=== PATIENT | female | born 1995 | race Caucasian/White ===

== ENCOUNTER → 2018-09-11 | Outpatient (CLI) | payer OTHER ==
[2018-09-11 13:04] LABS: BASO % 0.2 % (0.0-1.0); EOS # 0.1 10^3/uL (0.0-0.50); EOS % 0.9 % (0.0-3.0); HEMOGLOBIN 12.8 g/dl (12.0-15.5); LYMPH # 2.3 10^3/uL (1.5-6.5); LYMPH % 22.2 % (24.0-44.0); MEAN CORPUSCULAR HGB CONC 34.6 g/dl (32.0-36.5); MEAN CORPUSCULAR VOLUME 98.1 fl (80.0-96.0); MONO # 0.7 10^3/uL (0.0-0.8); MONO % 6.5 % (0.0-5.0); NEUTROPHILS # 7.3 10^3/uL (1.8-7.7); NEUTROPHILS % 69.6 % (36.0-66.0); PLATELET COUNT, AUTOMATED 247 10^3/uL (150-450); RED BLOOD COUNT 3.77 10^6/uL (4.00-5.40); WHITE BLOOD COUNT 10.5 10^3/uL (4.0-10.0)
[2018-09-11 14:28] LABS: HEPATITIS C VIRUS ABY INDEX 0.1 INDEX (<0.8); HIV 1&2 SCREEN CENTAUR NEGATIVE (NEGATIVE); RUBELLA IgG QUALITATIVE IMMUNE (IMMUNE)
[2018-09-11 14:47] LABS: CHLAMYDIA DNA AMPLIFICATION NEGATIVE (NEGATIVE); GC DNA AMPLIFICATION NEGATIVE (NEGATIVE)
== END ==
LOC: M LAB 12:28
PROVIDERS: ATTEND Advanced Practice Midwife
DX: Z34.01 Encounter for supervision of normal first pregnancy, first trimester (principal); Z3A.10 10 weeks gestation of pregnancy; Z36.89 Encounter for other specified antenatal screening

== ENCOUNTER → 2018-09-11 | Outpatient (CLI) | payer OTHER ==
--- NOTE | 2018-09-11 20:40 | REP ---
Clinical: Anatomical evaluation. Comparison: None . Findings: Examination demonstrates a single live intrauterine in cephalic presentation. motion is identified by technologist. Placenta is noted anterior and grade zero without evidence for placenta previa or abruption. Amniotic fluid volume is normal. Cervix measures 3.4 cm in length and appears closed. No evidence for nuchal cord. Gestational age by LMP 18 weeks 1 day with ANASTACIO 02/11/2019 . Gestational age by current measurements 18 weeks 1 day with ANASTACIO 02/11/2019 . FHR equals 163 beats per minute. BPD 4.3 cm 19 weeks 0 days HC 15.3 cm 18 weeks 2 days AC 13.0 cm 18 weeks 4-day FL 2.6 cm 18 weeks 0 days HL 2.6 cm 18 weeks 0 days HC/AC ratio 1.18 Estimated weight 234 grams ( 55th percentile). Anatomical assessment demonstrates normal structures including cranium, choroid plexus, cavum, cerebellum/posterior fossa, lungs, four-chamber heart/ventricular outflow tracts, diaphragm, stomach, cord insertion/three-vessel cord, kidneys/bladder, spine, and extremities. Impression: Single live intrauterine in cephalic presentation demonstrating appropriate interval growth. Limited evaluation of the facial features. Remainder examination is normal. Electronically Signed by Vick Bolivar MD 09/11/2018 08:31 P
== END ==
LOC: M RAD 11:17
PROVIDERS: ATTEND Specialist
DX: Z36.89 Encounter for other specified antenatal screening (principal); Z3A.18 18 weeks gestation of pregnancy

== ENCOUNTER → 2018-10-02 | Outpatient (CLI) | payer OTHER ==
--- NOTE | 2018-10-02 12:36 | REP ---
Clinical: Anatomical evaluation. Comparison: 09/11/2018 . Findings: Examination demonstrates a single live intrauterine in cephalic presentation. motion is identified by technologist. Placenta is noted anterior and grade zero without evidence for placenta previa or abruption. Amniotic fluid volume is normal. Cervix measures 3.9 cm in length and appears closed. No evidence for nuchal cord. Gestational age by LMP 21 weeks 1 day with ANASTACIO 02/11/2019 . Gestational age by current measurements 21 weeks 1 day with ANASTACIO 02/11/2019 . FHR equals 163 beats per minute. Estimated weight 452 grams ( 71st percentile). Anatomical assessment demonstrates normal structures including cranium, choroid plexus, cavum, cerebellum/posterior fossa, facial features, lungs, four-chamber heart/ventricular outflow tracts, diaphragm, stomach, cord insertion/three-vessel cord, kidneys/bladder, spine, and extremities. Impression: Single live intrauterine in cephalic presentation demonstrating appropriate interval growth. Anatomical assessment is complete and normal. No gross abnormalities are identified. Electronically Signed by Vick Bolivar MD 10/02/2018 12:28 P
== END ==
LOC: M RAD 10:58
PROVIDERS: ATTEND Advanced Practice Midwife
DX: Z34.02 Encounter for supervision of normal first pregnancy, second trimester (principal); Z36.89 Encounter for other specified antenatal screening; Z3A.21 21 weeks gestation of pregnancy

== ENCOUNTER → 2018-11-20 | Outpatient (CLI) | payer OTHER ==
[2018-11-20 14:00] LABS: BASO % 0.3 % (0.0-1.0); EOS # 0.2 10^3/uL (0.0-0.5); EOS % 1.1 % (0.0-3.0); HEMATOCRIT 35.6 % (36.0-47.0); HEMOGLOBIN 12.2 g/dl (12.0-15.5); LYMPH # 2.7 10^3/uL (1.5-5.0); LYMPH % 17.5 % (24.0-44.0); MEAN CORPUSCULAR HEMOGLOBIN 35.2 pg (27.0-33.0); MEAN CORPUSCULAR HGB CONC 34.3 g/dl (32.0-36.5); MEAN CORPUSCULAR VOLUME 102.6 fl (80.0-96.0); MONO # 0.8 10^3/uL (0.0-0.8); MONO % 5.2 % (0.0-5.0); NEUTROPHILS # 11.4 10^3/uL (1.5-8.5); NEUTROPHILS % 74.7 % (36.0-66.0); PLATELET COUNT, AUTOMATED 267 10^3/uL (150-450); RED BLOOD COUNT 3.47 10^6/uL (4.00-5.40); WHITE BLOOD COUNT 15.2 10^3/uL (4.0-10.0)
== END ==
LOC: M LAB 11:22
PROVIDERS: ATTEND Specialist
DX: Z34.02 Encounter for supervision of normal first pregnancy, second trimester (principal)

== ENCOUNTER → 2019-01-15 | Outpatient (REF) | payer OTHER | LOC: M LAB REF 15:34 | PROVIDERS: ATTEND Obstetrics & Gynecology | DX: Z36.85 Encounter for antenatal screening for Streptococcus B (principal) ==

== ENCOUNTER 2019-02-02 15:56 | Inpatient (IN) | payer OTHER ==
[~2019-02-02] VITALS: Ht 154.9 cm; Wt 75.7 kg
[2019-02-02 16:19] VITALS: BP 127/78
[2019-02-02] MEDS ORDERED: PRENTAB9 PO (16:21)
[2019-02-02] MEDS ORDERED: TUMS750C5 PO (16:21)
[2019-02-02 17:16] VITALS: BP 128/80
--- NOTE | 2019-02-02 18:07 | HPE ---
DATE OF ADMISSION: 02/02/2019 REASON FOR ADMISSION: Spontaneous rupture of membranes. HISTORY OF PRESENT ILLNESS: Ms. Renee is a 23-year-old, 1 who presents at 38 weeks 5 days estimated gestational age by her last menstrual period confirmed by first trimester ultrasound with complaints of contractions and leakage of fluid she reports approximately at 3:30 this afternoon. She has reported contractions throughout the day but after the leakage of fluid they have increased in intensity and frequency. She denies any vaginal bleeding and reports active movement. Her course has been unremarkable. She initiated care in her first trimester and has been appropriate throughout. PAST MEDICAL HISTORY: History of anxiety, obsessive-compulsive disorder, and depression. PAST SURGICAL HISTORY: None. PAST OBSTETRICAL HISTORY: She is a 1. MEDICATIONS: Includes: - vitamins - she discontinued Prozac during her ALLERGIEs: She has no known drug allergies. SOCIAL HISTORY: She is a former smoker, quit during her . Denies any drug use or alcohol use during her . PHYSICAL EXAMINATION: Vital signs: Stable. She is afebrile. She has a category one heart rate tracing. heart rate 130 beats, moderate variability, no decelerations on tocometer. Contractions approximately every 3-4 minutes. General appearance: Well appearing, no acute distress. Lungs: Clear to auscultation bilaterally. Cardiovascular: Heart regular rate and rhythm. Abdomen is gravid, nontender. EFW 3100 grams. Cervical exam: She is 2 cm dilated, 50% effaced, -3 station, and grossly ruptured. Nitrazine positive. Fern positive. LABORATORY DATA: Blood type is O+, antibody screen negative. Rubella is immune. RPR is nonreactive. Hepatitis surface antigen negative. Hepatitis C is nonreactive. HIV is negative. Chlamydia and gonorrhea screens were negative. She had a normal 1-hour Glucola. She is GBS negative. ASSESSMENT: 1. Ms. Renee is a 23-year-old 1 at 38 weeks 5 days estimated gestational age with spontaneous rupture of membranes. 2. Reassuring status. PLAN: 1. Admit to Labor delivery, CBC, RPR, type and screen. 2. The patient has been thoroughly counseled in regards to medication as well as procedures performed in labor and delivery. She has been verbally consented for emergency surgery, blood products, and anesthesia and desires to proceed with admission. 3. Patient is a good candidate for an epidural. 4. Anticipate spontaneous vaginal delivery.
[2019-02-02 18:39] VITALS: BP 136/92
[2019-02-02 18:51] LABS: HEMATOCRIT 38.9 % (36.0-47.0); HEMOGLOBIN 13.2 g/dl (12.0-15.5); MEAN CORPUSCULAR HEMOGLOBIN 34.3 pg (27.0-33.0); MEAN CORPUSCULAR HGB CONC 33.9 g/dl (32.0-36.5); PLATELET COUNT, AUTOMATED 257 10^3/uL (150-450); RED BLOOD COUNT 3.85 10^6/uL (4.00-5.40); WHITE BLOOD COUNT 17.5 10^3/uL (4.0-10.0)
[2019-02-02 19:35] VITALS: BP 135/87
[2019-02-02] MEDS ORDERED: PROMETHAZINE INJ 25 MG/ML VIAL (J2550) IV PRN (20:00)
[2019-02-02] MEDS ORDERED: LR 1,000 ML IV SCH (20:00)
[2019-02-02] MEDS ORDERED: BUTORPHANOL 2 MG/ML INJ (J0595) IV ONE (20:00)
[2019-02-02] MEDS ORDERED: miSOPROStol 50 MCG 1/2 TAB (S0191) PO SCH (22:00)
[2019-02-02] MEDS ORDERED: FENTANYL 2MCG/ML ROPIVACAINE 0.2% IN 0.9% NACL 100ML IVBAG As Ordered ONE (22:11)
[2019-02-02] MEDS ORDERED: NALOXONE INJ 0.4 MG/1 ML VIAL (J2310) IV PRN (23:00)
[2019-02-02] MEDS ORDERED: EPIDURAL/PCA KEYS XX PRN (23:00)
[2019-02-02] MEDS ORDERED: EPIDURAL COMMENT XX SCH (23:00)
[2019-02-02] MEDS ORDERED: diphenhydrAMINE INJ 50MG/ML VIAL (J1200) IV PRN (23:00)
[2019-02-02] MEDS ORDERED: FENTANYL/ROPIVACAINE/NACL BAG 100 ML EPIDURAL SCH (23:00)
[2019-02-02] MEDS ORDERED: REFRIGERATOR IV KEYS XX PRN (23:00)
[2019-02-02] MEDS ORDERED: ONDANSETRON 4MG/2ML VIAL (J2405) IV PRN (23:00)
[2019-02-02] MEDS ORDERED: ePHEDrine SULFATE 25 MG/5 ML(5MG/ML) SYRINGE IV PRN (23:00)
[2019-02-03] MEDS ORDERED: OXYTOCIN 30 UNITS IN 0.9% NaCl 500ML IV BAG (J2590) As Ordered ONE (01:57)
[2019-02-03 04:12] LABS: CORD GAS ABE A -15.7; CORD GAS ABE V -12.5; CORD GAS HCO3 A 16.8 MEQ/L; CORD GAS HCO3 V 15.8 MEQ/L; CORD GAS O2 SAT A 24.7 %; CORD GAS O2 SAT V 44.9 %; CORD GAS PCO2 A 66.5 mmHg; CORD GAS PCO2 V 44.3 mmHg; CORD GAS PH A 7.02 UNITS; CORD GAS PH V 7.17 UNITS; CORD GAS PO2 A 18.8 mmHg; CORD GAS PO2 V 23.5 mmHg; CORD GAS SBC A 11.8 MEQ/L; CORD GAS TCO2 A 18.8 MEQ/L; CORD GAS TCO2 V 17.2 MEQ/L
[2019-02-03] MEDS ORDERED: MOM 30ML SUSPENSION UDC PO PRN (04:45)
[2019-02-03] MEDS ORDERED: IBUPROFEN 600 MG TAB PO PRN (04:45)
[2019-02-03] MEDS ORDERED: ANUSOL HC CREAM 30GM TOP PRN (04:45)
[2019-02-03] MEDS ORDERED: ACETAMINOPHEN TAB 650MG DOSE (2X325MG) PO PRN (04:45)
[2019-02-03] MEDS ORDERED: DIBUCAINE 1% OINTMENT 30GM TOP PRN (04:45)
[2019-02-03] MEDS ORDERED: MEASLES,MUMPS,RUBELLA VACCINE INJ (MMR-II) (90707) SC SCH (04:45)
[2019-02-03] MEDS ORDERED: DOCUSATE SODIUM 100 MG CAP PO PRN (04:45)
[2019-02-03] MEDS ORDERED: METHYLERGONOVINE MALEATE 0.2 MG TAB PO PRN (04:45)
[2019-02-03] MEDS ORDERED: RHOGAM 300 MCG (1500 IU) INJ (J2790) IM SCH (05:00)
[2019-02-03] MEDS ORDERED: OXYTOCIN DRIP 30 UNITS in IV 1 EA IV SCH (05:00)
[2019-02-03 06:16] VITALS: BP 131/86
--- NOTE | 2019-02-03 06:44 | DN ---
DATE OF DELIVERY: 02/03/2019 TIME OF : 4:02 GENDER: Female. APGARS: 7 and 9. WEIGHT: 6 pounds 12 ounces or 3070 grams. LACERATION: There was a right labial laceration as well as a second degree midline episiotomy without an extension. ESTIMATED BLOOD LOSS: 300 mL. ANESTHESIA: Epidural. COUNTS: 5 laparotomy sponges accounted for prior to and after delivery and 3 sharps removed from the delivery field. CORD GASES: 7.02, 7.17, with base excesses of -15.7, -12.5. DELIVERY NOTE: On 02/03/2019, at 0402, Mrs. Renee, a 23-year-old, 1, now para 1 had a spontaneous vaginal delivery of a live born female infant, Apgars 7 and 9, and weight was 3070 grams or 6 pounds 12 ounces. Head was delivered over a second-degree midline episiotomy. This was followed by delivery of anterior and posterior shoulder and then corpus. was handed to mom and cord was clamped times two and was cut by the father of baby. The was taken over to the warmer. Cord gases were obtained. Placenta was then delivered grossly intact. A premixed bag of 500 mL of normal saline with 30units of Pitocin was bolused along with uterine massage until the uterus was firm. On inspection, there was a second-degree midline episiotomy with no extension which was repaired with #3-0 Vicryl Rapide. A right labia laceration was repaired with #3-0 Vicryl Rapide. On reinspection, cervix, vagina and perineum were grossly intact and hemostatic. Mom and baby to recovery in stable condition. The couple has decided to name their daughter, Danyel Ryan. MARIA R
[2019-02-03] MEDS: PRENATAL VITAMINS CHEWABLE TABLET PO SCH (07:49)
[2019-02-03] MEDS: ACETAMINOPHEN 500 MG TAB PO PRN (07:49)
[2019-02-03] MEDS: IBUPROFEN 800 MG TAB PO PRN (16:27)
[2019-02-03 18:00] VITALS: BP 126/81
[2019-02-04 05:41] VITALS: BP 127/79
--- NOTE | 2019-02-04 07:39 | IPNPDOC ---
Progress Note Date of Service: Feb 04, 2019 Day#: 1 Progress Note SUBJECT: She has been ambulating, voiding spontaneously without issue and tole rating regular diet. Breast feeding without issue. OBJECTIVE: VITAL SIGNS: Within normal limits, afebrile. Alert and oriented times three. Breath sounds clear to auscultation. Heart rate: Regular rate and rhythm, no murmurs, rubs or gallops. Abdomen: Fundus firm at U-2. Soft, NTTP. Moderate lochia. ASSESSMENT: Day 1 PLAN: 1. Continue supportive nursing care. 2. Anticipate discharge home tomorrow. VS, I&O, 24H, Fishbone Vital Signs/I&O Vital Signs Date Time Temp Pulse Resp B/P (MAP) Pulse Ox O2 Delivery O2 Flow Rate FiO2 02/04/19 05:41 97.5 97 17 127/79 (95) 99 Room Air I&O- Last 24 Hours up to 6 AM 02/04/19 06:00 Output Total 1325 ml Balance -1325 ml FRED ZHENG CNM Feb 04, 2019 07:39
[2019-02-04] MEDS: IBUPROFEN 800 MG TAB PO PRN (11:19)
[2019-02-04] MEDS: PRENATAL VITAMINS CHEWABLE TABLET PO SCH (11:19)
[2019-02-04 18:00] VITALS: BP 128/86
[2019-02-04] MEDS: ACETAMINOPHEN 500 MG TAB PO PRN (18:23)
[2019-02-05] MEDS: IBUPROFEN 800 MG TAB PO PRN (03:52)
[2019-02-05 06:12] VITALS: BP 121/73
[2019-02-05] MEDS: ACETAMINOPHEN 500 MG TAB PO PRN (06:30)
[2019-02-05] MEDS: PRENATAL VITAMINS CHEWABLE TABLET PO SCH (07:33)
[2019-02-05] MEDS ORDERED: IBUP80TA PO (08:05)
== END 2019-02-05 12:00 | disposition home or self-care (01) | DRG 560 ==
LOC: M LDO 15:56 → M LDI 17:18 → M OBS 02-03 06:07
PROVIDERS: ADMIT Obstetrics & Gynecology; ATTEND Obstetrics & Gynecology
PROC: 0W8NXZZ Division of Female Perineum, External Approach (ICD-10-PCS; principal; 2019-02-03)
PROC: 10E0XZZ Delivery of Products of Conception, External Approach (ICD-10-PCS; 2019-02-03)
DX: O80 Encounter for full-term uncomplicated delivery (principal); Z37.0 Single live birth; Z3A.38 38 weeks gestation of pregnancy; Z87.891 Personal history of nicotine dependence

== ENCOUNTER → 2022-10-17 | Day surgery (SDC) | payer OTHER ==
[~2022-10-17] VITALS: Ht 157.5 cm; Wt 77.1 kg
[~2022-10-17] MED LIST: FLUO40CA PO; IBUP80TA PO; NS 1,000 ML IV ONE; OMEP40CA4 PO; ONDA-83 PO; PRENTAB9 PO; TRI-TAB16 PO; TUMS750C5 PO; fentaNYL 100 MCG/2 ML INJECTION As Ordered ONE; propofoL 200 MG/20 ML VIAL As Ordered ONE
== END | disposition home or self-care (01) ==
LOC: M OPP 12:39
PROVIDERS: ATTEND Internal Medicine Gastroenterology
DX: R10.13 Epigastric pain (principal); Z53.9 Procedure and treatment not carried out, unspecified reason

== ENCOUNTER → 2022-11-23 | Outpatient (CLI) | payer OTHER ==
[~2022-11-23] MED LIST changes: +E-Z-GAS II EFFERVESCENT PACKET (SODIUM BICARB./CITRIC ACID/SIMETHICONE) As Ordered ONE; +E-Z-HD 98% w/w 340GM SUSP BTL As Ordered ONE; +E-Z-PAQUE 96% w/w SUSP 176GM BTL As Ordered ONE; -NS 1,000 ML IV ONE; -fentaNYL 100 MCG/2 ML INJECTION As Ordered ONE; -propofoL 200 MG/20 ML VIAL As Ordered ONE
== END ==
LOC: M RAD 08:18
PROVIDERS: ATTEND Internal Medicine Gastroenterology
DX: K21.00 Gastro-esophageal reflux disease with esophagitis, without bleeding (principal); R10.13 Epigastric pain

== ENCOUNTER 2023-01-09 07:31 | Day surgery (SDC) | payer OTHER ==
[~2023-01-09] VITALS: Ht 154.9 cm; Wt 79.1 kg
[~2023-01-09 07:31] MED LIST changes: -E-Z-GAS II EFFERVESCENT PACKET (SODIUM BICARB./CITRIC ACID/SIMETHICONE) As Ordered ONE; -E-Z-HD 98% w/w 340GM SUSP BTL As Ordered ONE; -E-Z-PAQUE 96% w/w SUSP 176GM BTL As Ordered ONE; +LIDOCAINE 2% 100MG/5ML SDV (FOR ANES.) As Ordered ONE; +NS 1,000 ML IV ONE; +PANT40TA29 PO; +SUCR1ORA PO; +propofoL 200 MG/20 ML VIAL As Ordered ONE
[2023-01-09 08:49] VITALS: TEMP 98.2
[2023-01-09 09:15] VITALS: BP 126/80; O2SAT 99
== END 2023-01-09 09:22 | disposition home or self-care (01) ==
LOC: M OPP 07:31
PROVIDERS: ATTEND Internal Medicine Gastroenterology
DX: K29.70 Gastritis, unspecified, without bleeding (principal); K92.0 Hematemesis

== ENCOUNTER → 2023-11-20 | Outpatient (CLI) | payer OTHER ==
[~2023-11-20] MED LIST changes: -LIDOCAINE 2% 100MG/5ML SDV (FOR ANES.) As Ordered ONE; -NS 1,000 ML IV ONE; -propofoL 200 MG/20 ML VIAL As Ordered ONE
[2023-11-20 15:51] LABS: HEPATITIS B SURFACE ANTIBODY POSITIVE (POSITIVE)
[2023-11-20 15:53] LABS: ALBUMIN 4.1 G/DL (3.2-5.2); ALKALINE PHOSPHATASE 98 U/L (46-116); ALT/SGPT 22 U/L (7.0-40); AST/SGOT 14 U/L (<34); BILIRUBIN,TOTAL 1.1 MG/DL (0.3-1.2); BLOOD UREA NITROGEN 10 MG/DL (9-23); CALCIUM LEVEL 9.7 MG/DL (8.5-10.1); CARBON DIOXIDE LEVEL 30 MMOL/L (20-31); CHLORIDE LEVEL 104 MMOL/L (98-107); CREATININE FOR GFR 0.56 MG/DL (0.55-1.30); GLOMERULAR FILTRATION RATE > 60.0 (>60); GLUCOSE, FASTING 66 MG/DL (60-100); POTASSIUM SERUM 4.1 MMOL/L (3.5-5.1); SODIUM LEVEL 139 MMOL/L (136-145); TOTAL PROTEIN 7.8 G/DL (5.7-8.2)
[2023-11-20 16:16] LABS: HIV 1&2 SCREEN NEGATIVE (NEGATIVE)
[2023-11-22 13:57] LABS: HEPATITIS A IgG TOTAL REACTIVE (NON-REACTIVE); HEPATITIS B CORE ANTIBODY IGG NON-REACTIVE (NON-REACTIVE)
[2023-11-22 19:18] LABS: HCV RNA QUANTITATION 20 IU/mL (NOT DETECTED)
== END ==
LOC: M PLALAB 10:17
PROVIDERS: ATTEND Internal Medicine Infectious Disease
DX: B18.2 Chronic viral hepatitis C (principal)